=== PATIENT | female | born 1955 | race Caucasian/White ===

== ENCOUNTER 2020-06-24 13:48 | Emergency (ER) | payer MEDICARE ==
--- NOTE | 2020-06-24 14:02 | ED Physician Documentation ---
PD HPI CHEST PAIN - Stated complaint Stated Complaint: CHEST PX - Chief complaint Chief Complaint: Cardiac - History obtained from History obtained from: Patient, Friend - History of Present Illness Timing - onset: How many hours ago (few), Today Timing - onset during: Other (she states she tripped and fell and landed forward onto hands and knees. Noted pain in left pectoral area and anterior shoulder, worse with arm movement and deep breathing. She does not feel that she impacted the shoulder per se.) Timing - details: Abrupt onset, Still present, Waxing and waning Quality: Aching, Dull, Pain Location: Left chest (upper chest to lateral clavicle area.) Radiation: No: Neck, Back Improved by: Rest Worsened by: Inspiration, Movement (of left shoulder/upper arm) Associated symptoms: Shortness of air, Feeling faint / dizzy. No: Diaphoresis, Nausea, Vomiting Similar symptoms before: Has not had sx before Review of Systems Constitutional: denies: Fever, Chills Nose: denies: Rhinorrhea / runny nose, Congestion Throat: denies: Sore throat Respiratory: denies: Cough GI: denies: Abdominal Pain, Nausea, Vomiting Skin: denies: Rash Musculoskeletal: denies: Neck pain, Back pain Neurologic: denies: Focal weakness, Numbness, Near syncope PD PAST MEDICAL HISTORY - Past Medical History Past Medical History: No Cardiovascular: None Respiratory: None Neuro: None - Present Medications Home Medications: Ambulatory Orders Medication Instructions Recorded Confirmed Hydrocodone/Acetaminophen 1 each PO Q6H PRN #12 tablet 06/24/20 [Hydrocodone-Acetamin 5-325 mg] Tizanidine HCl 4 mg PO TID PRN #15 capsule 06/24/20 - Allergies Allergies/Adverse Reactions: Allergies Allergy/AdvReac Type Severity Reaction Status Date / Time No Known Drug Allergies Allergy Verified 06/24/20 13:53 PD ED PE NORMAL - Vitals Vital signs reviewed: Yes - General General: Alert and oriented X 3, No acute distress, Well developed/nourished - HEENT HEENT: Atraumatic, Moist mucous membranes, Pharynx benign - Neck Neck: Supple, no meningeal sign, No bony TTP, No adenopathy - Cardiac Cardiac: RRR, No murmur - Respiratory Respiratory: Clear bilaterally, Other (there is chestwall tednerness left upper pectoral area. Not tender at clavile nor AC per se. ROM of the shoulder does cause some pain in anterior upper chest. ) - Abdomen Abdomen: Soft, Non tender - Derm Derm: Normal color, Warm and dry - Extremities Extremities: No tenderness to palpate, Normal ROM s pain, No edema, No calf tenderness / cord - Neuro Neuro: Alert and oriented X 3, No motor deficit, Normal speech Results - Vitals Vitals: Vital Signs - 24 hr 06/24/20 06/24/20 06/24/20 13:53 14:00 15:54 Temperature 36.7 C 36.7 C 36.7 C Heart Rate 100 100 90 Respiratory 16 16 16 Rate Blood Pressure 153/92 H 153/92 H 140/90 H O2 Saturation 97 97 98 Oxygen O2 Source Room air - EKG (time done) 13:50 Rate: Rate (enter#) (94) Rhythm: NSR [place]: Normal Intervals: Normal ID QRS: Normal Ischemia: Normal ST segments. No: ST elevation c/w ischemia, ST depression - Rads (name of study) left chest and ribs Radiology: Prelim report reviewed (no acute process), See rad report PD MEDICAL DECISION MAKING - ED course Complexity details: reviewed results (chest and ribs appear normal on plain film. ), considered differential (given the accidental fall to hands and knees, with then left pectoral chest pain, would seem likely muscular. Can get CXR and ECG. ), d/w patient Departure - Departure Disposition: 01 Home, Self Care Clinical Impression: Accidental fall Qualifiers: Encounter type: initial encounter Qualified Code(s): W19.XXXA - Unspecified fall, initial encounter Chest wall muscle strain Qualifiers: Encounter type: initial encounter Qualified Code(s): S29.011A - Strain of muscle and tendon of front wall of thorax, initial encounter Condition: Stable Record reviewed to determine appropriate education?: Yes Instructions: ED Strain Chest Wall Ch Prescriptions: Hydrocodone/Acetaminophen [Hydrocodone-Acetamin 5-325 mg] 1 each PO Q6H PRN #12 tablet PRN Reason: Pain Tizanidine HCl 4 mg PO TID PRN #15 capsule PRN Reason: Spasms Comments: Your chest x-ray and rib x-rays are normal. Your EKG and heart rhythm are normal as well. The sounds like a strain of the chest wall muscles from your fall. Use anti-inflammatory such as ibuprofen or naproxen and to that add Tylenol if needed. Heat and gentle stretching and range of motion of the shoulder and pectoral muscles. Add tizanidine muscle relaxant for spasms or hydrocodone pain medicine if needed for worse pain. I would anticipate improvement over the next 3 to 5 days and resolution after that. Recheck if not improved in that timeframe. Discharge Date/Time: 06/24/20 15:57
[2020-06-24] MEDS ORDERED: ACETAMINOPHEN 325 MG TABLET PO STA (14:18)
--- NOTE | 2020-06-24 14:52 | XRAY Report ---
PROCEDURE: Ribs w/PA Chest LT INDICATIONS: fell with left upper chest/shoulder pain TECHNIQUE: 2 views of the left ribs were acquired, along with a single view chest. COMPARISON: None FINDINGS: Surgical changes and devices: None. Bones and chest wall: No fractures or dislocations. No suspicious bony lesions. Overlying soft tis sues appear unremarkable. Lungs and pleura: No pleural effusions or pneumothorax. Lungs appear clear. Mediastinum: Mediastinal contours appear normal. Heart size is normal. IMPRESSION: No trauma found, source of rib pain is not identified. Please note that nondisplaced rib fractures ma y not be accurately detected initially and follow-up plain films if required may identify callus form ation in several days. Reviewed by: Tiago lOiveros MD on 06/24/2020 2:51 PM PDT Approved by: Tiago Oliveros MD on 06/24/2020 2:51 PM PDT Station ID: [id number]
[2020-06-24 15:55] VITALS: BP 140/90
== END 2020-06-24 15:57 | disposition home or self-care (01) ==
LOC: ED 13:48
DX: S29.011A Strain of muscle and tendon of front wall of thorax, initial encounter (principal); W01.0XXA Fall on same level from slipping, tripping and stumbling without subsequent striking against object, initial encounter
CPT/HCPCS: 71101; 93005; 99283; 99284; A9270